=== PATIENT | female | born 1935 | race Hispanic/Latino ===

== ENCOUNTER → 2018-06-04 | Outpatient (CLI) | payer MEDICARE ==
[~2018-06-04] MED LIST: FENO150C4 PO; FISH1CAP20 PO; LEVO100T4 PO; LEVO88TA7 PO; LIDOCAINE/PRILOCAINE CREAM 5GM TUBE TP ONE; LINA5TAB PO; MECL-129 PO; MULT1CAP32 PO; ROPI0.5T5 PO; VALS80TA30 PO; VITAMIN B12 PO
[2018-06-04 17:06] VITALS: BP 131/55
== END | disposition home or self-care (01) ==
LOC: WHH 14:15
PROVIDERS: ATTEND Family Medicine
DX: I83.022 Varicose veins of left lower extremity with ulcer of calf (principal); I83.012 Varicose veins of right lower extremity with ulcer of calf; E11.622 Type 2 diabetes mellitus with other skin ulcer; L97.212 Non-pressure chronic ulcer of right calf with fat layer exposed; L97.221 Non-pressure chronic ulcer of left calf limited to breakdown of skin; I25.10 Atherosclerotic heart disease of native coronary artery without angina pectoris; E78.5 Hyperlipidemia, unspecified; M19.90 Unspecified osteoarthritis, unspecified site; K21.9 Gastro-esophageal reflux disease without esophagitis; E03.9 Hypothyroidism, unspecified; I11.0 Hypertensive heart disease with heart failure; I50.9 Heart failure, unspecified; Z90.710 Acquired absence of both cervix and uterus; Z88.8 Allergy status to other drugs, medicaments and biological substances; Z85.3 Personal history of malignant neoplasm of breast; Z79.899 Other long term (current) drug therapy; Z79.4 Long term (current) use of insulin
CPT/HCPCS: 11042; 36415; 84134; 86140; A4450; A6248; G0463; J3490

== ENCOUNTER → 2018-06-07 | Outpatient (CLI) | payer MEDICARE ==
[~2018-06-07] MED LIST changes: -LIDOCAINE/PRILOCAINE CREAM 5GM TUBE TP ONE
[2018-06-07 09:46] VITALS: BP 112/68
== END | disposition home or self-care (01) ==
LOC: WHH 09:20
PROVIDERS: ATTEND Family Medicine
DX: I83.022 Varicose veins of left lower extremity with ulcer of calf (principal); I83.012 Varicose veins of right lower extremity with ulcer of calf; E11.622 Type 2 diabetes mellitus with other skin ulcer; L97.211 Non-pressure chronic ulcer of right calf limited to breakdown of skin; L97.221 Non-pressure chronic ulcer of left calf limited to breakdown of skin; I25.10 Atherosclerotic heart disease of native coronary artery without angina pectoris; E78.5 Hyperlipidemia, unspecified; M19.90 Unspecified osteoarthritis, unspecified site; K21.9 Gastro-esophageal reflux disease without esophagitis; E03.9 Hypothyroidism, unspecified; I11.0 Hypertensive heart disease with heart failure; I50.9 Heart failure, unspecified; E11.51 Type 2 diabetes mellitus with diabetic peripheral angiopathy without gangrene; Z90.710 Acquired absence of both cervix and uterus; Z88.8 Allergy status to other drugs, medicaments and biological substances; Z85.3 Personal history of malignant neoplasm of breast; Z79.899 Other long term (current) drug therapy; Z79.4 Long term (current) use of insulin
CPT/HCPCS: 93922

== ENCOUNTER → 2018-06-11 | Outpatient (CLI) | payer MEDICARE ==
[~2018-06-11] MED LIST changes: +LIDOCAINE/PRILOCAINE CREAM 5GM TUBE TP ONE
[2018-06-11 16:34] VITALS: BP 168/80
== END | disposition home or self-care (01) ==
LOC: WHH 14:00
PROVIDERS: ATTEND Family Medicine
DX: I83.022 Varicose veins of left lower extremity with ulcer of calf (principal); I83.012 Varicose veins of right lower extremity with ulcer of calf; E11.622 Type 2 diabetes mellitus with other skin ulcer; L97.212 Non-pressure chronic ulcer of right calf with fat layer exposed; L97.222 Non-pressure chronic ulcer of left calf with fat layer exposed; I25.10 Atherosclerotic heart disease of native coronary artery without angina pectoris; E78.5 Hyperlipidemia, unspecified; M19.90 Unspecified osteoarthritis, unspecified site; K21.9 Gastro-esophageal reflux disease without esophagitis; E03.9 Hypothyroidism, unspecified; I11.0 Hypertensive heart disease with heart failure; I50.9 Heart failure, unspecified; E11.51 Type 2 diabetes mellitus with diabetic peripheral angiopathy without gangrene; Z90.710 Acquired absence of both cervix and uterus; Z88.8 Allergy status to other drugs, medicaments and biological substances; Z85.3 Personal history of malignant neoplasm of breast; Z79.899 Other long term (current) drug therapy; Z79.4 Long term (current) use of insulin; I89.0 Lymphedema, not elsewhere classified
CPT/HCPCS: 11042; A6196; J3490

== ENCOUNTER → 2018-06-25 | Outpatient (CLI) | payer MEDICARE ==
[~2018-06-25] MED LIST changes: -LIDOCAINE/PRILOCAINE CREAM 5GM TUBE TP ONE
[2018-06-25 16:02] VITALS: BP 167/81
== END | disposition home or self-care (01) ==
LOC: WHH 14:00
PROVIDERS: ATTEND Family Medicine
DX: E11.622 Type 2 diabetes mellitus with other skin ulcer (principal); L97.212 Non-pressure chronic ulcer of right calf with fat layer exposed; L97.222 Non-pressure chronic ulcer of left calf with fat layer exposed; L97.322 Non-pressure chronic ulcer of left ankle with fat layer exposed; I83.012 Varicose veins of right lower extremity with ulcer of calf; I83.022 Varicose veins of left lower extremity with ulcer of calf; I83.023 Varicose veins of left lower extremity with ulcer of ankle; I11.0 Hypertensive heart disease with heart failure; I50.9 Heart failure, unspecified; I25.10 Atherosclerotic heart disease of native coronary artery without angina pectoris; I87.2 Venous insufficiency (chronic) (peripheral); I89.0 Lymphedema, not elsewhere classified; K21.9 Gastro-esophageal reflux disease without esophagitis; E03.9 Hypothyroidism, unspecified; E78.5 Hyperlipidemia, unspecified; E11.51 Type 2 diabetes mellitus with diabetic peripheral angiopathy without gangrene; M19.90 Unspecified osteoarthritis, unspecified site; Z79.899 Other long term (current) drug therapy; Z85.3 Personal history of malignant neoplasm of breast; Z90.49 Acquired absence of other specified parts of digestive tract
CPT/HCPCS: 11042

== ENCOUNTER → 2018-07-02 | Outpatient (CLI) | payer MEDICARE ==
[~2018-07-02] MED LIST changes: +LIDOCAINE/PRILOCAINE CREAM 5GM TUBE TP ONE
[2018-07-02 17:17] VITALS: BP 142/65
== END | disposition home or self-care (01) ==
LOC: WHH 13:45
PROVIDERS: ATTEND Family Medicine
DX: E11.622 Type 2 diabetes mellitus with other skin ulcer (principal); I83.012 Varicose veins of right lower extremity with ulcer of calf; L97.212 Non-pressure chronic ulcer of right calf with fat layer exposed; I83.022 Varicose veins of left lower extremity with ulcer of calf; L97.222 Non-pressure chronic ulcer of left calf with fat layer exposed; I83.023 Varicose veins of left lower extremity with ulcer of ankle; L97.322 Non-pressure chronic ulcer of left ankle with fat layer exposed; I11.0 Hypertensive heart disease with heart failure; I50.9 Heart failure, unspecified; I25.10 Atherosclerotic heart disease of native coronary artery without angina pectoris; I89.0 Lymphedema, not elsewhere classified; K21.9 Gastro-esophageal reflux disease without esophagitis; E03.9 Hypothyroidism, unspecified; E78.5 Hyperlipidemia, unspecified; E11.51 Type 2 diabetes mellitus with diabetic peripheral angiopathy without gangrene; M19.90 Unspecified osteoarthritis, unspecified site; Z85.3 Personal history of malignant neoplasm of breast; Z90.49 Acquired absence of other specified parts of digestive tract; Z90.710 Acquired absence of both cervix and uterus; Z88.8 Allergy status to other drugs, medicaments and biological substances; Z79.4 Long term (current) use of insulin; Z79.899 Other long term (current) drug therapy
CPT/HCPCS: A6248; G0463; J3490

== ENCOUNTER 2018-12-05 05:57 | Day surgery (SDC) | payer MEDICARE ==
[~2018-12-05] VITALS: Ht 149.9 cm; Wt 47.6 kg
[~2018-12-05 05:57] MED LIST changes: +CARAL PO; -LIDOCAINE/PRILOCAINE CREAM 5GM TUBE TP ONE; +ONDA4TAB4 PO; +SODIUM CHLORIDE 0.9% 1000ML 1,000 ML IV ONE
[2018-12-05 06:45] VITALS: BP 132/67
[2018-12-05] MEDS ORDERED: OLME40TA18 PO (07:24)
[2018-12-05] MEDS ORDERED: ACET1TAB25 PO (07:24)
[2018-12-05] MEDS ORDERED: INSLAN SQ (07:24)
[2018-12-05] MEDS ORDERED: AMLO2.5T4 PO (07:24)
[2018-12-05] MEDS ORDERED: GABA-529 PO (07:24)
[2018-12-05] MEDS ORDERED: PROPOFOL 10 MG/ML 20ML VIAL IV ONE (08:56)
[2018-12-05 09:10] VITALS: BP 133/49
[2018-12-05 09:15] VITALS: BP 128/47
[2018-12-05 09:20] VITALS: BP 133/62
[2018-12-05 09:30] VITALS: BP 142/65
== END 2018-12-05 09:44 | disposition home or self-care (01) ==
LOC: ENDO 05:57 → DAH 05:57 → ENDO 09:44
PROVIDERS: ATTEND Internal Medicine
DX: K29.50 Unspecified chronic gastritis without bleeding (principal); K31.89 Other diseases of stomach and duodenum; K22.8 Other specified diseases of esophagus; Z79.899 Other long term (current) drug therapy; I10 Essential (primary) hypertension; E11.9 Type 2 diabetes mellitus without complications; Z85.3 Personal history of malignant neoplasm of breast; K21.9 Gastro-esophageal reflux disease without esophagitis; Z87.442 Personal history of urinary calculi; Z90.710 Acquired absence of both cervix and uterus; Z90.12 Acquired absence of left breast and nipple; K59.01 Slow transit constipation; K22.2 Esophageal obstruction; E03.9 Hypothyroidism, unspecified
CPT/HCPCS: 43239; 82948 ×2; 88305; 88342; A4606; J2704; J7030

== ENCOUNTER → 2018-12-10 | Outpatient (CLI) | payer MEDICARE ==
[~2018-12-10] MED LIST changes: +ACET1TAB25 PO; +AMLO2.5T4 PO; -FENO150C4 PO; -FISH1CAP20 PO; +GABA-529 PO; +HONEY 1 APPL/ML TUBE TP ONE; +INSLAN SQ; -LEVO88TA7 PO; +LIDOCAINE/PRILOCAINE CREAM 5GM TUBE TP ONE; -MECL-129 PO; -MULT1CAP32 PO; +OLME40TA18 PO; -SODIUM CHLORIDE 0.9% 1000ML 1,000 ML IV ONE; -VITAMIN B12 PO
[2018-12-10 16:39] VITALS: BP 132/60
== END | disposition home or self-care (01) ==
LOC: WHH 13:00
PROVIDERS: ATTEND Family Medicine
DX: E11.622 Type 2 diabetes mellitus with other skin ulcer (principal); L97.822 Non-pressure chronic ulcer of other part of left lower leg with fat layer exposed; I83.008 Varicose veins of unspecified lower extremity with ulcer other part of lower leg; I87.2 Venous insufficiency (chronic) (peripheral); I11.0 Hypertensive heart disease with heart failure; I50.9 Heart failure, unspecified; I25.10 Atherosclerotic heart disease of native coronary artery without angina pectoris; E03.9 Hypothyroidism, unspecified; Z85.3 Personal history of malignant neoplasm of breast; Z79.4 Long term (current) use of insulin
CPT/HCPCS: 11042; 36415; 84134; 86140; 87070; A6197; J3490

== ENCOUNTER → 2018-12-17 | Outpatient (CLI) | payer MEDICARE ==
[~2018-12-17] MED LIST changes: -HONEY 1 APPL/ML TUBE TP ONE
[2018-12-17 16:10] VITALS: BP 143/60
== END | disposition home or self-care (01) ==
LOC: WHH 14:12
PROVIDERS: ATTEND Family Medicine
DX: E11.622 Type 2 diabetes mellitus with other skin ulcer (principal); L97.822 Non-pressure chronic ulcer of other part of left lower leg with fat layer exposed; I83.028 Varicose veins of left lower extremity with ulcer other part of lower leg; I87.2 Venous insufficiency (chronic) (peripheral); I11.0 Hypertensive heart disease with heart failure; I50.9 Heart failure, unspecified; I25.10 Atherosclerotic heart disease of native coronary artery without angina pectoris; E03.9 Hypothyroidism, unspecified; E78.5 Hyperlipidemia, unspecified; Z85.3 Personal history of malignant neoplasm of breast; Z79.4 Long term (current) use of insulin; Z79.899 Other long term (current) drug therapy; Z90.49 Acquired absence of other specified parts of digestive tract; Z90.710 Acquired absence of both cervix and uterus; Z90.12 Acquired absence of left breast and nipple
CPT/HCPCS: 11042; J3490

== ENCOUNTER 2019-03-03 13:08 | Emergency (ER) | payer MEDICARE ==
[~2019-03-03 13:08] MED LIST changes: -LIDOCAINE/PRILOCAINE CREAM 5GM TUBE TP ONE
[2019-03-03] MEDS ORDERED: LORAZEPAM 2 MG/ML 1 ML VIAL ONE (13:42)
[2019-03-03] MEDS ORDERED: KETOROLAC TROMETHAMINE 30MG/ML ONE (14:31)
== END 2019-03-03 15:17 | disposition home or self-care (01) ==
LOC: EDH 13:08
DX: G89.29 Other chronic pain (principal); M54.5 Low back pain; E78.5 Hyperlipidemia, unspecified; I10 Essential (primary) hypertension; E11.9 Type 2 diabetes mellitus without complications; M19.90 Unspecified osteoarthritis, unspecified site; E07.9 Disorder of thyroid, unspecified; Z91.041 Radiographic dye allergy status
CPT/HCPCS: 96372 ×2; 99284; J1885; J2060

== ENCOUNTER → 2020-08-06 | Outpatient (CLI) | payer MEDICARE ==
[~2020-08-06] MED LIST changes: -ROPI0.5T5 PO; +ROPI0.5T7 PO
== END | disposition home or self-care (01) ==
LOC: RAH 13:02
PROVIDERS: ATTEND Physical Medicine & Rehabilitation
DX: M47.812 Spondylosis without myelopathy or radiculopathy, cervical region (principal); M48.02 Spinal stenosis, cervical region; S33.130A Subluxation of L3/L4 lumbar vertebra, initial encounter; X58.XXXA Exposure to other specified factors, initial encounter; Y93.89 Activity, other specified; Y92.89 Other specified places as the place of occurrence of the external cause; Y99.8 Other external cause status
CPT/HCPCS: 72125

== ENCOUNTER 2021-05-21 07:59 | Emergency (ER) | payer MEDICARE ==
[~2021-05-21] VITALS: Ht 149.9 cm; Wt 55.3 kg
[2021-05-21 09:38] VITALS: BP 120/51
[2021-05-21] MEDS ORDERED: IPRATROPIUM/ALBUTEROL SULFATE 3 ML SOLUTION IH SCH (10:00)
[2021-05-21 10:11] LABS: BASOPHILS % (AUTO) 0.1 % (0.0-5.0); EOSINOPHILS % (AUTO) 0.6 % (0.0-8.0); LYMPHOCYTES % (AUTO) 11.3 % (21.0-51.0); MEAN CORPUSCULAR HEMOGLOBIN 33.3 pg (27.0-33.0); MEAN CORPUSCULAR HGB CONC 31.9 g/dL (32.0-36.0); MEAN CORPUSCULAR VOLUME 104.4 fL (79-99); MONOCYTES % (AUTO) 4.9 % (3.0-13.0); NEUTROPHILS % (AUTO) 82.7 % (40.0-77.0); PLATELET COUNT (AUTO) 203 K/uL (130-400); RED BLOOD CELL COUNT(AUTO) 2.97 MIL/uL (4.00-5.50); RED CELL DISTRIBUTION WIDTH 13.4 % (11.0-15.5); WHITE BLOOD COUNT (AUTO) 9.8 K/uL (4.8-10.8)
[2021-05-21 10:35] LABS: CREATININE 0.6 mg/dL (0.5-1.5); POTASSIUM 5.5 mmol/L (3.5-5.1)
[2021-05-21] MEDS ORDERED: OSELTAMIVIR PHOSPHATE 75 MG CAP PO SCH (11:30)
[2021-05-21] MEDS ORDERED: IPRA3AMP24 IH (11:43)
[2021-05-21] MEDS ORDERED: OSEL75 PO (11:43)
== END 2021-05-21 12:14 | disposition home or self-care (01) ==
LOC: EDH 07:59
DX: J10.1 Influenza due to other identified influenza virus with other respiratory manifestations (principal); E11.9 Type 2 diabetes mellitus without complications; Z20.822 Contact with and (suspected) exposure to COVID-19; Z91.041 Radiographic dye allergy status; Z79.4 Long term (current) use of insulin; Z79.899 Other long term (current) drug therapy
CPT/HCPCS: 36415; 71045; 80048; 84484; 85025; 87635; 87804 ×2; 93005; 94640; 99285; C9803

== ENCOUNTER 2021-06-08 13:20 | Emergency (ER) | payer MEDICARE ==
[~2021-06-08] VITALS: Ht 149.9 cm; Wt 47.6 kg
[~2021-06-08 13:20] MED LIST changes: +IPRA3AMP24 IH; +OSEL75 PO
[2021-06-08 13:55] LABS: BASOPHILS % (AUTO) 0.1 % (0.0-5.0); EOSINOPHILS % (AUTO) 0.6 % (0.0-8.0); HEMATOCRIT 33.7 % (36-48); LYMPHOCYTES % (AUTO) 10.3 % (21.0-51.0); MEAN CORPUSCULAR HEMOGLOBIN 33.6 pg (27.0-33.0); MEAN CORPUSCULAR HGB CONC 31.8 g/dL (32.0-36.0); MONOCYTES % (AUTO) 7.1 % (3.0-13.0); NEUTROPHILS % (AUTO) 81.4 % (40.0-77.0); PLATELET COUNT (AUTO) 304 K/uL (130-400); RED BLOOD CELL COUNT(AUTO) 3.18 MIL/uL (4.00-5.50); RED CELL DISTRIBUTION WIDTH 13.2 % (11.0-15.5); WHITE BLOOD COUNT (AUTO) 10.9 K/uL (4.8-10.8)
[2021-06-08] MEDS ORDERED: MORPHINE 2 MG SYG IVP ONE (14:00)
[2021-06-08] MEDS ORDERED: ONDANSETRON 4MG INJ IVP ONE (14:00)
[2021-06-08 14:25] LABS: B-TYPE NATRIURETIC PEPTIDE 66 pg/mL (0-100)
[2021-06-08 14:43] LABS: ALANINE AMINOTRANSFERASE 47 U/L (12-78); ALBUMIN 2.6 g/dL (3.5-5.0); ASPARTATE AMINOTRANSFERASE 21 U/L (10-37); BILIRUBIN,TOTAL 0.1 mg/dL (0.2-1.0); CARBON DIOXIDE 25 mmol/L (21-32); CHLORIDE 107 mmol/L (101-111); CREATININE 0.7 mg/dL (0.5-1.5); GLOMERULAR FILTR. RATE CALC 84 mL/min (>60); GLUCOSE,RANDOM 171 mg/dL (70-105); POTASSIUM 5.1 mmol/L (3.5-5.1); SODIUM SERUM 140 mmol/L (136-145); TOTAL PROTEIN, SERUM 6.5 g/dL (6.0-8.3); UREA NITROGEN, BLOOD 28 mg/dL (7-18)
[2021-06-08 15:17] LABS: CRP QUANTITATIVE < 2.00 mg/L (0.00-9.0)
[2021-06-08 15:50] LABS: APPEARANCE,URINE Clear (CLEAR); BILIRUBIN,URINE Negative (NEGATIVE); COLOR,URINE Yellow (YELLOW); GLUCOSE, URINE (UA) Negative (NEGATIVE); KETONES,URINE Negative (NEGATIVE); LEUKOCYTE ESTERASE ,URINE Negative (NEGATIVE); NITRATE,URINE Negative (NEGATIVE); OCCULT BLOOD,URINE Negative (NEGATIVE); PH,URINE 5.5 (5.0-8.0); PROTEIN,URINE POS 1+ mg/dL (NEGATIVE); UROBILINOGEN,URINE 0.2 mg/dL (0.2-1.0)
[2021-06-08 16:10] VITALS: BP 135/61
[2021-06-08] MEDS ORDERED: ACET-2247 PO (16:18)
[2021-06-08 16:43] LABS: BACTERIA,URINE Few /HPF (None Seen); MUCUS,URINE Rare LPF (None Seen); RBC,URINE 0-1 /HPF (0-1); SQUAMOUS EPITHELIAL CELL,UR Rare /HPF (0-2); WBC,URINE 0-1 /HPF (0-1)
== END 2021-06-08 16:42 | disposition home or self-care (01) ==
LOC: EDH 13:20
DX: S16.1XXA Strain of muscle, fascia and tendon at neck level, initial encounter (principal); S40.012A Contusion of left shoulder, initial encounter; S00.83XA Contusion of other part of head, initial encounter; E11.9 Type 2 diabetes mellitus without complications; K21.9 Gastro-esophageal reflux disease without esophagitis; Z88.8 Allergy status to other drugs, medicaments and biological substances; Z85.3 Personal history of malignant neoplasm of breast; Z79.899 Other long term (current) drug therapy; Z79.4 Long term (current) use of insulin; W18.39XA Other fall on same level, initial encounter; Y93.89 Activity, other specified; Y92.89 Other specified places as the place of occurrence of the external cause; Y99.8 Other external cause status
CPT/HCPCS: 36415; 70450; 71045; 72125; 73060; 80053; 81001; 83880; 84484; 85025; 86140; 93005; 96374; 96375; 99285; J2405

== ENCOUNTER → 2021-07-18 | Outpatient (CLI) | payer MEDICARE ==
[~2021-07-18] MED LIST changes: +ACET-2247 PO; +BOTULINUM TOXIN TYPE A 100 UNITS/VIAL INJ SCH; +CEPH500B PO
== END | disposition home or self-care (01) ==
LOC: DAH 10:00 → EDSTATUS 07-21 10:30
PROVIDERS: ATTEND Internal Medicine Gastroenterology
DX: Z01.812 Encounter for preprocedural laboratory examination (principal); K22.0 Achalasia of cardia; R13.10 Dysphagia, unspecified; R10.13 Epigastric pain; Z20.822 Contact with and (suspected) exposure to COVID-19
CPT/HCPCS: 87635; C9803; J0585

== ENCOUNTER 2021-07-21 09:39 | Emergency (ER) | payer MEDICARE ==
[~2021-07-21] VITALS: Ht 149.9 cm; Wt 47.6 kg
[~2021-07-21 09:39] MED LIST changes: -BOTULINUM TOXIN TYPE A 100 UNITS/VIAL INJ SCH; -CARAL PO; -CEPH500B PO; -GABA-529 PO; -ONDA4TAB4 PO; -OSEL75 PO; -ROPI0.5T7 PO; -VALS80TA30 PO
[2021-07-21 10:09] LABS: BASOPHILS % (AUTO) 0.3 % (0.0-5.0); EOSINOPHILS % (AUTO) 0.9 % (0.0-8.0); HEMATOCRIT 32.6 % (36-48); LYMPHOCYTES % (AUTO) 15.4 % (21.0-51.0); MEAN CORPUSCULAR HEMOGLOBIN 33.7 pg (27.0-33.0); MEAN CORPUSCULAR HGB CONC 31.9 g/dL (32.0-36.0); MEAN CORPUSCULAR VOLUME 105.5 fL (79-99); MONOCYTES % (AUTO) 7.3 % (3.0-13.0); NEUTROPHILS % (AUTO) 75.8 % (40.0-77.0); PLATELET COUNT (AUTO) 213 K/uL (130-400); RED BLOOD CELL COUNT(AUTO) 3.09 MIL/uL (4.00-5.50); RED CELL DISTRIBUTION WIDTH 13.8 % (11.0-15.5); WHITE BLOOD COUNT (AUTO) 7.7 K/uL (4.8-10.8)
[2021-07-21 10:19] LABS: CREATININE 0.5 mg/dL (0.5-1.5); INR 0.98 (0.85-1.15); POTASSIUM 5.1 mmol/L (3.5-5.1); PROTHROMBIN TIME 10.7 SEC (9.6-11.6)
[2021-07-21 10:21] LABS: PARTIAL THROMBOPLASTIN TIME 27.7 SEC (26.3-35.5)
[2021-07-21 10:24] LABS: ALBUMIN 3.3 g/dL (3.5-5.0); BILIRUBIN,TOTAL 0.3 mg/dL (0.2-1.0)
[2021-07-21 10:31] LABS: B-TYPE NATRIURETIC PEPTIDE 18 pg/mL (0-100)
[2021-07-21 11:48] LABS: APPEARANCE,URINE CLEAR (CLEAR); BILIRUBIN,URINE NEGATIVE (NEGATIVE); COLOR,URINE YELLOW (YELLOW); GLUCOSE, URINE (UA) NEGATIVE (NEGATIVE); KETONES,URINE NEGATIVE (NEGATIVE); LEUKOCYTE ESTERASE ,URINE MODERATE (NEGATIVE); NITRATE,URINE NEGATIVE (NEGATIVE); OCCULT BLOOD,URINE NEGATIVE (NEGATIVE); PROTEIN,URINE NEGATIVE (NEGATIVE); UROBILINOGEN,URINE 0.2 mg/dL (0.2-1.0)
[2021-07-21 11:58] LABS: BACTERIA,URINE Few /HPF (None Seen); RBC,URINE 0-1 /HPF (0-1); SQUAMOUS EPITHELIAL CELL,UR 0-2 /HPF (0-2)
[2021-07-21] MEDS ORDERED: CEFTRIAXONE 1G VIAL IVP ONE (13:30)
[2021-07-21] MEDS ORDERED: CEFTRIAXONE 1G VIAL ONE (13:37)
[2021-07-21 13:43] VITALS: BP 111/62
[2021-07-21] MEDS ORDERED: CEPH500B PO (14:36)
== END 2021-07-21 15:01 | disposition home or self-care (01) ==
LOC: EDH 09:39
DX: N39.0 Urinary tract infection, site not specified (principal); R42 Dizziness and giddiness; E11.9 Type 2 diabetes mellitus without complications; I10 Essential (primary) hypertension; Z79.4 Long term (current) use of insulin; Z79.899 Other long term (current) drug therapy; Z85.3 Personal history of malignant neoplasm of breast; Z88.8 Allergy status to other drugs, medicaments and biological substances
CPT/HCPCS: 36415; 70450; 71045; 80053; 81001; 82550; 83721; 83880; 84484; 85025; 85610; 85730; 87088; 93005 ×2; 96374; 99285; J0696

== ENCOUNTER → 2021-10-20 | Outpatient (CLI) | payer MEDICARE ==
[~2021-10-20] MED LIST changes: +ACET-2079 PO; -ACET1TAB25 PO; +CEPH500B PO
== END | disposition home or self-care (01) ==
LOC: EDSTATUS 07:00 → DAH 10:00
PROVIDERS: ATTEND Internal Medicine Gastroenterology
DX: K22.0 Achalasia of cardia (principal); R13.10 Dysphagia, unspecified; Z20.822 Contact with and (suspected) exposure to COVID-19
CPT/HCPCS: 87635; C9803